=== PATIENT | male | born 1940 | race Caucasian/White ===

== ENCOUNTER 2016-08-17 12:55 | Inpatient (IN) | payer OTHER ==
[~2016-08-17] VITALS: Ht 180.3 cm; Wt 102.6 kg
[~2016-08-17 12:55] MED LIST: KETAMINE INJ 50 MG/ML VIAL IV ONE; PROPOFOL 50ML PER ML IV ONE
[2016-08-17] MEDS ORDERED: LIDOCAINE 1% 20ML NERVEBLOCK ONE (14:17)
[2016-08-17] MEDS ORDERED: BACITRACIN 50,000 UNITS INJ IRRIG ONE (14:17)
[2016-08-17] MEDS ORDERED: BUPIVACA/EPI 0.5% 50ML NERVEBLOCK ONE (14:17)
[2016-08-17] MEDS ORDERED: DILAUDID 1 MG/ML AMP ONE (18:05)
[2016-08-17] MEDS ORDERED: PHARMACY TO DOSE ZOSYN IV SCH (19:55)
[2016-08-17] MEDS ORDERED: GLUCAGON 1 MG VIAL IM PRN (19:55)
[2016-08-17] MEDS ORDERED: PHARMACY TO DOSE VANCOMYCIN IV SCH (19:55)
[2016-08-17] MEDS ORDERED: MAG HYDROX 30 ML UDC PO PRN (20:00)
[2016-08-17] MEDS ORDERED: BISACODYL 10 MG SUPP RECTAL PRN (20:00)
[2016-08-17] MEDS ORDERED: BISACODYL EC 5 MG TAB PO PRN (20:00)
[2016-08-17] MEDS ORDERED: VANCOMYCIN 2,000 MG in SODIUM CHLORIDE 0.9% 500 ML IV ONE (20:05)
[2016-08-17] MEDS: SALINE FLUSH 10 ML FLUSH SCH (22:07)
[2016-08-17] MEDS: DILAUDID 1 MG/ML AMP IV PRN (22:07)
[2016-08-17 22:21] VITALS: BP_SYST 106; RESP 18; TEMP 96
[2016-08-17 22:24] VITALS: Ht 180.3 cm; Wt 102.6 kg
[2016-08-17] MEDS: PIPERACIL/TAZO 2.25GM/50ML 50 ML IV SCH (23:29)
[2016-08-17] MEDS: ROPINIROLE 0.25 MG TAB PO SCH (23:33)
[2016-08-18] VITALS (7 sets, daily range): BP systolic 99–122; RESP 16–18; TEMP 96.6–98.8
[2016-08-18] MEDS: SODIUM CHLORIDE 0.9% FLUSH BAG 500 ML IV SCH (05:19)
[2016-08-18] MEDS: DILAUDID 1 MG/ML AMP IV PRN ×3 (05:20→18:42)
[2016-08-18] MEDS ORDERED: SODIUM CHLORIDE 0.9% 1,000 ML IV PRN (12:35)
[2016-08-18] MEDS ORDERED: SODIUM CHLORIDE 0.9% 1,000 ML IV SCH (12:35)
[2016-08-18] MEDS ORDERED: ONDANSETRON 4 MG VIAL IV PRN (12:35)
[2016-08-18] MEDS ORDERED: ALBUMIN HUMAN 25GM (25%) 100 ML IV PRN (12:35)
[2016-08-18] MEDS: SALINE FLUSH 10 ML FLUSH SCH ×2 (13:52→19:03)
[2016-08-18] MEDS: PIPERACIL/TAZO 2.25GM/50ML 50 ML IV SCH ×2 (15:37→19:40)
[2016-08-18] MEDS: Losartan 50 MG TAB PO SCH (17:43)
[2016-08-18] MEDS: ASPIRIN EC 81 MG TAB PO SCH (17:43)
[2016-08-18] MEDS: TAMSULOSIN 0.4 MG CAP PO SCH (17:43)
[2016-08-18] MEDS: ROSUVASTATIN 5 MG TAB PO SCH (17:43)
[2016-08-18] MEDS: EZETIMIBE 10 MG TAB PO SCH (17:44)
[2016-08-18] MEDS: ZINC TOPICAL PRN ×2 (19:01→20:45)
[2016-08-18] MEDS: DIPHENHYDR TOPICAL PRN ×2 (19:01→20:45)
[2016-08-18] MEDS: ROPINIROLE 0.25 MG TAB PO SCH (20:45)
[2016-08-19] MEDS: DILAUDID 1 MG/ML AMP IV PRN ×4 (00:57→20:29)
[2016-08-19 03:42] VITALS: BP_SYST 116; RESP 16; TEMP 98.6
[2016-08-19] MEDS: ACETAMINOPHEN 325 MG TAB PO PRN ×3 (04:31→18:18)
[2016-08-19] MEDS: SODIUM CHLORIDE 0.9% FLUSH BAG 500 ML IV SCH (05:16)
[2016-08-19 07:18] VITALS: BP_SYST 98; RESP 20; TEMP 97.7
[2016-08-19] MEDS: TAMSULOSIN 0.4 MG CAP PO SCH (09:17)
[2016-08-19] MEDS: ROSUVASTATIN 5 MG TAB PO SCH (09:17)
[2016-08-19] MEDS: PIPERACIL/TAZO 2.25GM/50ML 50 ML IV SCH ×2 (09:17→20:29)
[2016-08-19] MEDS: Losartan 50 MG TAB PO SCH (09:17)
[2016-08-19] MEDS: SALINE FLUSH 10 ML FLUSH SCH ×2 (09:17→20:29)
[2016-08-19] MEDS: ASPIRIN EC 81 MG TAB PO SCH (09:17)
[2016-08-19] MEDS: EZETIMIBE 10 MG TAB PO SCH (09:18)
[2016-08-19 10:52] VITALS: BP_SYST 102; RESP 18; TEMP 97.4
[2016-08-19] MEDS ORDERED: ALBUMIN HUMAN 25GM (25%) 100 ML IV PRN (13:00)
[2016-08-19] MEDS ORDERED: SODIUM CHLORIDE 0.9% 1,000 ML IV PRN (13:00)
[2016-08-19] MEDS ORDERED: SODIUM CHLORIDE 0.9% 1,000 ML IV SCH (13:00)
[2016-08-19 14:51] VITALS: BP_SYST 100; RESP 20; TEMP 98.5
[2016-08-19 19:00] VITALS: BP_SYST 105; RESP 18; TEMP 97.9
[2016-08-19] MEDS ORDERED: OPTIRAY 350 100 ML VIAL HMH IV ONE (19:54)
[2016-08-19] MEDS: ROPINIROLE 0.25 MG TAB PO SCH (20:28)
[2016-08-19] MEDS: SILVER SULF 1% CR 50 GM TOPICAL SCH (20:30)
[2016-08-19] MEDS: ZINC TOPICAL PRN (22:13)
[2016-08-19] MEDS: DIPHENHYDR TOPICAL PRN (22:13)
[2016-08-19 23:00] VITALS: BP_SYST 110; RESP 18; TEMP 97.8
[2016-08-20] VITALS (7 sets, daily range): BP systolic 81–133; RESP 16–18; TEMP 97.4–98.5
[2016-08-20] MEDS: DILAUDID 1 MG/ML AMP IV PRN ×5 (02:49→21:54)
[2016-08-20] MEDS: SODIUM CHLORIDE 0.9% FLUSH BAG 500 ML IV SCH (02:51)
[2016-08-20] MEDS: SALINE FLUSH 10 ML FLUSH SCH ×2 (07:53→20:08)
[2016-08-20] MEDS: PIPERACIL/TAZO 2.25GM/50ML 50 ML IV SCH ×2 (07:54→20:08)
[2016-08-20] MEDS: EZETIMIBE 10 MG TAB PO SCH (07:55)
[2016-08-20] MEDS: ROSUVASTATIN 5 MG TAB PO SCH (07:55)
[2016-08-20] MEDS: Losartan 50 MG TAB PO SCH (07:55)
[2016-08-20] MEDS: ASPIRIN EC 81 MG TAB PO SCH (07:55)
[2016-08-20] MEDS: TAMSULOSIN 0.4 MG CAP PO SCH (07:55)
[2016-08-20] MEDS: SILVER SULF 1% CR 50 GM TOPICAL SCH ×2 (07:56→22:33)
[2016-08-20] MEDS ORDERED: MISSING DOSE XX ONE ×3 (13:05→20:40)
[2016-08-20] MEDS: POLYETHYLENE GLYCOL 17 GM PACKET PO SCH (13:18)
[2016-08-20] MEDS: DOCUSATE SOD 100 MG CAP PO SCH ×2 (13:18→20:08)
[2016-08-20] MEDS: ACETAMINOPHEN 325 MG TAB PO PRN (15:50)
[2016-08-20] MEDS ORDERED: VANCOMYCIN 500 MG in SODIUM CHLORIDE 0.9% 100 ML IV ONE (16:00)
[2016-08-20] MEDS: ROPINIROLE 0.25 MG TAB PO SCH (20:08)
[2016-08-20] MEDS: CYCLOBENZAPRINE 10 MG TAB PO PRN (21:54)
[2016-08-21 02:33] VITALS: BP_SYST 102; RESP 18; TEMP 97.7
[2016-08-21] MEDS: DILAUDID 1 MG/ML AMP IV PRN ×3 (02:49→13:43)
[2016-08-21] MEDS: ACETAMINOPHEN 325 MG TAB PO PRN (05:44)
[2016-08-21] MEDS: SODIUM CHLORIDE 0.9% FLUSH BAG 500 ML IV SCH (05:45)
[2016-08-21] MEDS ORDERED: MISSING DOSE XX ONE (06:30)
[2016-08-21 08:14] VITALS: BP_SYST 101; RESP 18; TEMP 97.7
[2016-08-21] MEDS: ROSUVASTATIN 5 MG TAB PO SCH (09:16)
[2016-08-21] MEDS: POLYETHYLENE GLYCOL 17 GM PACKET PO SCH (09:16)
[2016-08-21] MEDS: EZETIMIBE 10 MG TAB PO SCH (09:16)
[2016-08-21] MEDS: DOCUSATE SOD 100 MG CAP PO SCH ×2 (09:16→20:03)
[2016-08-21] MEDS: ASPIRIN EC 81 MG TAB PO SCH (09:16)
[2016-08-21] MEDS: TAMSULOSIN 0.4 MG CAP PO SCH (09:16)
[2016-08-21] MEDS: PIPERACIL/TAZO 2.25GM/50ML 50 ML IV SCH ×2 (09:16→20:03)
[2016-08-21] MEDS: SALINE FLUSH 10 ML FLUSH SCH ×2 (09:17→20:03)
[2016-08-21 11:41] VITALS: BP_SYST 80; RESP 18; TEMP 97.2
[2016-08-21] MEDS: ZINC TOPICAL PRN ×2 (13:26→21:43)
[2016-08-21] MEDS: DIPHENHYDR TOPICAL PRN ×2 (13:26→21:43)
[2016-08-21 16:15] VITALS: BP_SYST 102; RESP 16; TEMP 98.2
[2016-08-21] MEDS: SILVER SULF 1% CR 50 GM TOPICAL SCH ×2 (17:46→21:00)
[2016-08-21 19:00] VITALS: BP_SYST 112; RESP 18; TEMP 97.5
[2016-08-21] MEDS: ROPINIROLE 0.25 MG TAB PO SCH (20:04)
[2016-08-21 22:41] VITALS: BP_SYST 104; RESP 18; TEMP 97.2
[2016-08-22] MEDS: DILAUDID 1 MG/ML AMP IV PRN ×5 (00:51→18:45)
[2016-08-22 02:39] VITALS: BP_SYST 114; RESP 18; TEMP 97.6
[2016-08-22] MEDS: SODIUM CHLORIDE 0.9% FLUSH BAG 500 ML IV SCH (05:25)
[2016-08-22 07:30] VITALS: BP_SYST 117; RESP 16; TEMP 97.4
[2016-08-22] MEDS: PIPERACIL/TAZO 2.25GM/50ML 50 ML IV SCH ×2 (08:00→21:22)
[2016-08-22] MEDS ORDERED: MISSING DOSE XX ONE ×4 (08:15→21:35)
[2016-08-22] MEDS: DOCUSATE SOD 100 MG CAP PO SCH ×2 (08:23→21:22)
[2016-08-22] MEDS: ROSUVASTATIN 5 MG TAB PO SCH (08:23)
[2016-08-22] MEDS: TAMSULOSIN 0.4 MG CAP PO SCH (08:23)
[2016-08-22] MEDS: ASPIRIN EC 81 MG TAB PO SCH (08:23)
[2016-08-22] MEDS: SALINE FLUSH 10 ML FLUSH SCH ×2 (08:23→21:22)
[2016-08-22] MEDS: EZETIMIBE 10 MG TAB PO SCH (08:23)
[2016-08-22] MEDS: POLYETHYLENE GLYCOL 17 GM PACKET PO SCH (08:24)
[2016-08-22] MEDS: SILVER SULF 1% CR 50 GM TOPICAL SCH (09:23)
[2016-08-22] MEDS: DIPHENHYDR TOPICAL PRN (09:24)
[2016-08-22] MEDS: ZINC TOPICAL PRN (09:24)
[2016-08-22] MEDS ORDERED: ALBUMIN HUMAN 25GM (25%) 100 ML IV PRN (09:45)
[2016-08-22] MEDS ORDERED: SODIUM CHLORIDE 0.9% 1,000 ML IV PRN (09:45)
[2016-08-22] MEDS ORDERED: SODIUM CHLORIDE 0.9% 1,000 ML IV SCH (09:45)
[2016-08-22] MEDS ORDERED: ONDANSETRON 4 MG VIAL IV PRN (09:45)
[2016-08-22] MEDS: CALCIUM ACETATE 667MG CAP PO SCH ×3 (10:08→17:32)
[2016-08-22 11:37] VITALS: BP_SYST 107; RESP 18; TEMP 98
[2016-08-22] MEDS: DIPHENHYDRAMINE 25 MG CAP PO PRN (13:41)
[2016-08-22 16:17] VITALS: BP_SYST 109; RESP 18; TEMP 97.6
[2016-08-22] MEDS: CILOSTAZOL 100 MG TAB PO SCH (17:00)
[2016-08-22 19:00] VITALS: BP_SYST 121; RESP 18; TEMP 97.6
[2016-08-22] MEDS: ROPINIROLE 0.25 MG TAB PO SCH (21:22)
[2016-08-22 23:00] VITALS: BP_SYST 107; RESP 18; TEMP 97.3
[2016-08-23] MEDS: DILAUDID 1 MG/ML AMP IV PRN ×4 (00:20→15:38)
[2016-08-23] MEDS: CYCLOBENZAPRINE 10 MG TAB PO PRN ×2 (01:40→21:39)
[2016-08-23] MEDS: SILVER SULF 1% CR 50 GM TOPICAL SCH ×3 (01:48→21:40)
[2016-08-23 04:29] VITALS: BP_SYST 119; RESP 18; TEMP 97.3
[2016-08-23] MEDS: CILOSTAZOL 100 MG TAB PO SCH ×2 (06:31→15:37)
[2016-08-23] MEDS: SODIUM CHLORIDE 0.9% FLUSH BAG 500 ML IV SCH (06:31)
[2016-08-23] MEDS: DIPHENHYDRAMINE 25 MG CAP PO PRN ×3 (08:26→21:38)
[2016-08-23] MEDS: SALINE FLUSH 10 ML FLUSH SCH ×2 (08:26→20:27)
[2016-08-23] MEDS: CALCIUM ACETATE 667MG CAP PO SCH ×3 (08:27→16:33)
[2016-08-23] MEDS: DOCUSATE SOD 100 MG CAP PO SCH ×2 (08:27→20:15)
[2016-08-23] MEDS: TAMSULOSIN 0.4 MG CAP PO SCH (08:27)
[2016-08-23] MEDS: POLYETHYLENE GLYCOL 17 GM PACKET PO SCH (08:27)
[2016-08-23] MEDS: ASPIRIN EC 81 MG TAB PO SCH (08:27)
[2016-08-23 08:47] VITALS: BP_SYST 112; RESP 20
[2016-08-23] MEDS: SALINE FLUSH 10 ML FLUSH PRN ×2 (08:48→15:40)
[2016-08-23] MEDS ORDERED: PHARMACY TO DOSE XX SCH (11:20)
[2016-08-23] MEDS: PIPERACIL/TAZO 2.25GM/50ML 50 ML IV SCH (11:29)
[2016-08-23] MEDS: ROSUVASTATIN 5 MG TAB PO SCH ×2 (11:29→20:15)
[2016-08-23] MEDS ORDERED: LEVOFLOXACIN 750 MG TAB PO ONE (12:00)
[2016-08-23 13:46] VITALS: BP_SYST 129; RESP 18; TEMP 97.6
[2016-08-23 13:49] VITALS: BP_SYST 121; RESP 16; TEMP 98.2
[2016-08-23] MEDS: SACCHA BOULARDII 250MG CAP PO SCH ×3 (14:10→20:15)
[2016-08-23] MEDS: EZETIMIBE 10 MG TAB PO SCH (14:11)
[2016-08-23] MEDS ORDERED: MISSING DOSE XX ONE ×3 (15:30→20:20)
[2016-08-23 17:29] VITALS: BP_SYST 116; RESP 20; TEMP 97.3
[2016-08-23] MEDS: ONDANSETRON 4 MG VIAL IV PRN (17:40)
[2016-08-23] MEDS: ROPINIROLE 0.25 MG TAB PO SCH (20:14)
[2016-08-23 20:49] VITALS: BP_SYST 104; RESP 18; TEMP 97.5
[2016-08-23] MEDS: DEXTROSE 50% SYRINGE 50 ML IV PRN (22:43)
[2016-08-24] VITALS (11 sets, daily range): BP systolic 83–113; RESP 18–20; TEMP 97.5–98.4
[2016-08-24] MEDS: DILAUDID 1 MG/ML AMP IV PRN ×4 (02:27→16:50)
[2016-08-24] MEDS: ACETAMINOPHEN 325 MG TAB PO PRN ×2 (05:06→11:57)
[2016-08-24] MEDS: SODIUM CHLORIDE 0.9% FLUSH BAG 500 ML IV SCH (05:07)
[2016-08-24] MEDS: CILOSTAZOL 100 MG TAB PO SCH ×2 (06:09→16:54)
[2016-08-24] MEDS: POLYETHYLENE GLYCOL 17 GM PACKET PO SCH (08:20)
[2016-08-24] MEDS: CALCIUM ACETATE 667MG CAP PO SCH ×3 (08:20→16:54)
[2016-08-24] MEDS: SACCHA BOULARDII 250MG CAP PO SCH ×3 (08:20→20:27)
[2016-08-24] MEDS: ASPIRIN EC 81 MG TAB PO SCH (08:20)
[2016-08-24] MEDS: SALINE FLUSH 10 ML FLUSH SCH ×2 (08:20→20:27)
[2016-08-24] MEDS: DOCUSATE SOD 100 MG CAP PO SCH ×2 (08:20→20:27)
[2016-08-24] MEDS: EZETIMIBE 10 MG TAB PO SCH (08:20)
[2016-08-24] MEDS: TAMSULOSIN 0.4 MG CAP PO SCH (08:21)
[2016-08-24] MEDS: SILVER SULF 1% CR 50 GM TOPICAL SCH ×2 (08:23→20:27)
[2016-08-24] MEDS ORDERED: LIDOCAINE 1% BUFFERED 1 ML SYR INTRADERM PRN (09:35)
[2016-08-24] MEDS ORDERED: SODIUM CHLORIDE 0.9% 1,000 ML IV SCH (09:35)
[2016-08-24] MEDS ORDERED: MIDAZOLAM 2 MG/2 ML INJ IV ONE (09:35)
[2016-08-24] MEDS: ONDANSETRON 4 MG VIAL IV PRN (18:11)
[2016-08-24] MEDS: ROSUVASTATIN 5 MG TAB PO SCH (20:27)
[2016-08-24] MEDS: ROPINIROLE 0.25 MG TAB PO SCH (20:27)
[2016-08-24] MEDS ORDERED: ZOLPIDEM 5 MG TAB PO SCH (21:00)
[2016-08-25] VITALS (20 sets, daily range): BP systolic 101–124; RESP 16–26; TEMP 97.5–98.9
[2016-08-25] MEDS: DIPHENHYDRAMINE 25 MG CAP PO PRN ×3 (00:41→19:59)
[2016-08-25] MEDS: DILAUDID 1 MG/ML AMP IV PRN ×5 (00:42→20:27)
[2016-08-25] MEDS: ZINC TOPICAL PRN (00:47)
[2016-08-25] MEDS: ONDANSETRON 4 MG VIAL IV PRN (00:47)
[2016-08-25] MEDS: DIPHENHYDR TOPICAL PRN (00:47)
[2016-08-25] MEDS: SODIUM CHLORIDE 0.9% FLUSH BAG 500 ML IV SCH (06:00)
[2016-08-25] MEDS: CILOSTAZOL 100 MG TAB PO SCH ×2 (06:52→16:00)
[2016-08-25] MEDS: CALCIUM ACETATE 667MG CAP PO SCH ×3 (07:16→17:00)
[2016-08-25] MEDS: ASPIRIN EC 81 MG TAB PO SCH (08:14)
[2016-08-25] MEDS: POLYETHYLENE GLYCOL 17 GM PACKET PO SCH (08:14)
[2016-08-25] MEDS: TAMSULOSIN 0.4 MG CAP PO SCH (08:14)
[2016-08-25] MEDS: SACCHA BOULARDII 250MG CAP PO SCH ×3 (08:18→19:59)
[2016-08-25] MEDS: EZETIMIBE 10 MG TAB PO SCH (08:18)
[2016-08-25] MEDS: LEVOFLOXACIN 500 MG TAB PO SCH (08:19)
[2016-08-25] MEDS: SALINE FLUSH 10 ML FLUSH SCH ×2 (08:21→19:54)
[2016-08-25] MEDS: DOCUSATE SOD 100 MG CAP PO SCH ×2 (08:22→19:59)
[2016-08-25] MEDS: SILVER SULF 1% CR 50 GM TOPICAL SCH ×2 (08:22→21:00)
[2016-08-25] MEDS ORDERED: MISSING DOSE XX ONE (09:20)
[2016-08-25] MEDS ORDERED: MIDAZOLAM 2 MG/2 ML INJ ONE (09:25)
[2016-08-25] MEDS ORDERED: OXYCODONE 5 MG TAB PO PRN (10:20)
[2016-08-25] MEDS ORDERED: DILAUDID 1 MG/ML AMP IV PRN (10:20)
[2016-08-25] MEDS ORDERED: ONDANSETRON 4 MG VIAL IV PRN (10:20)
[2016-08-25] MEDS: ROSUVASTATIN 5 MG TAB PO SCH (19:59)
[2016-08-25] MEDS: ROPINIROLE 0.25 MG TAB PO SCH (19:59)
[2016-08-25] MEDS: TEMAZEPAM 15 MG CAP PO SCH (19:59)
[2016-08-25] MEDS: CYCLOBENZAPRINE 10 MG TAB PO PRN (23:41)
[2016-08-25] MEDS: ACETAMINOPHEN 325 MG TAB PO PRN (23:43)
[2016-08-26] MEDS: DILAUDID 1 MG/ML AMP IV PRN ×3 (02:00→14:54)
[2016-08-26] MEDS: SODIUM CHLORIDE 0.9% FLUSH BAG 500 ML IV SCH ×2 (02:53→21:38)
[2016-08-26 03:59] VITALS: BP_SYST 90; RESP 18; TEMP 97.8
[2016-08-26] MEDS: CILOSTAZOL 100 MG TAB PO SCH ×2 (05:44→17:02)
[2016-08-26 07:11] VITALS: BP_SYST 99; RESP 18; TEMP 98.8
[2016-08-26] MEDS: SACCHA BOULARDII 250MG CAP PO SCH ×3 (07:50→21:38)
[2016-08-26] MEDS: CALCIUM ACETATE 667MG CAP PO SCH ×3 (07:50→17:02)
[2016-08-26] MEDS: DOCUSATE SOD 100 MG CAP PO SCH ×2 (07:51→21:38)
[2016-08-26] MEDS: ASPIRIN EC 81 MG TAB PO SCH (07:51)
[2016-08-26] MEDS: EZETIMIBE 10 MG TAB PO SCH (07:51)
[2016-08-26] MEDS: TAMSULOSIN 0.4 MG CAP PO SCH (07:51)
[2016-08-26] MEDS: POLYETHYLENE GLYCOL 17 GM PACKET PO SCH (07:52)
[2016-08-26] MEDS: SALINE FLUSH 10 ML FLUSH SCH ×2 (08:00→21:37)
[2016-08-26] MEDS: SILVER SULF 1% CR 50 GM TOPICAL SCH ×2 (09:00→21:00)
[2016-08-26] MEDS ORDERED: MISSING DOSE XX ONE (10:05)
[2016-08-26 10:58] VITALS: BP_SYST 109; RESP 18; TEMP 98.1
[2016-08-26 15:26] VITALS: BP_SYST 78; RESP 18; TEMP 98.6
[2016-08-26] MEDS ORDERED: ALBUMIN HUMAN 25GM (25%) 100 ML IV ONE (15:50)
[2016-08-26] MEDS ORDERED: SODIUM CHLORIDE 0.9% 500 ML IV ONE (15:50)
[2016-08-26 19:51] VITALS: BP_SYST 102; RESP 18; TEMP 97.9
[2016-08-26] MEDS: ROPINIROLE 0.25 MG TAB PO SCH (21:37)
[2016-08-26] MEDS: ROSUVASTATIN 5 MG TAB PO SCH (21:37)
[2016-08-26] MEDS: TEMAZEPAM 15 MG CAP PO SCH (21:37)
[2016-08-27] VITALS (9 sets, daily range): BP systolic 91–126; RESP 16–20; TEMP 97.7–98.8
[2016-08-27] MEDS: DILAUDID 1 MG/ML AMP IV PRN (02:18)
[2016-08-27] MEDS: CILOSTAZOL 100 MG TAB PO SCH ×2 (05:55→15:16)
[2016-08-27] MEDS: LEVOFLOXACIN 500 MG TAB PO SCH (08:02)
[2016-08-27] MEDS: ASPIRIN EC 81 MG TAB PO SCH (08:02)
[2016-08-27] MEDS: SACCHA BOULARDII 250MG CAP PO SCH ×3 (08:02→21:05)
[2016-08-27] MEDS: TAMSULOSIN 0.4 MG CAP PO SCH (08:02)
[2016-08-27] MEDS: CALCIUM ACETATE 667MG CAP PO SCH ×3 (08:02→17:00)
[2016-08-27] MEDS: DOCUSATE SOD 100 MG CAP PO SCH ×2 (08:02→21:05)
[2016-08-27] MEDS: DAKIN'S 0.25% 480 ML TOPICAL SCH (08:03)
[2016-08-27] MEDS: EZETIMIBE 10 MG TAB PO SCH (08:03)
[2016-08-27] MEDS: POLYETHYLENE GLYCOL 17 GM PACKET PO SCH (08:04)
[2016-08-27] MEDS: SALINE FLUSH 10 ML FLUSH SCH ×2 (08:07→21:14)
[2016-08-27] MEDS ORDERED: OXYCODONE/APAP 5/325 TAB PO PRN (08:20)
[2016-08-27] MEDS: OXYCODONE 5 MG TAB PO PRN ×4 (08:47→22:39)
[2016-08-27] MEDS: ACETAMINOPHEN 325 MG TAB PO SCH ×3 (10:20→21:04)
[2016-08-27] MEDS: GABAPENTIN 100 MG CAP PO SCH ×3 (12:40→21:05)
[2016-08-27] MEDS: ONDANSETRON 4 MG VIAL IV PRN (15:48)
[2016-08-27] MEDS ORDERED: PHARMACY TO DOSE MERREM XX SCH (19:10)
[2016-08-27] MEDS: Meropenem 500 MG in SODIUM CHLORIDE 0.9% 100 ML IV SCH (21:01)
[2016-08-27] MEDS: TEMAZEPAM 15 MG CAP PO SCH (21:02)
[2016-08-27] MEDS: ROSUVASTATIN 5 MG TAB PO SCH (21:05)
[2016-08-27] MEDS: ROPINIROLE 0.25 MG TAB PO SCH (21:05)
[2016-08-27] MEDS: SODIUM CHLORIDE 0.9% FLUSH BAG 500 ML IV SCH (21:14)
[2016-08-28] VITALS (8 sets, daily range): BP systolic 68–147; RESP 16–20; TEMP 97.4–98.7
[2016-08-28] MEDS: ACETAMINOPHEN 325 MG TAB PO SCH ×4 (04:20→22:14)
[2016-08-28] MEDS: CILOSTAZOL 100 MG TAB PO SCH ×2 (06:00→16:28)
[2016-08-28] MEDS: DAKIN'S 0.25% 480 ML TOPICAL SCH (08:39)
[2016-08-28] MEDS: SALINE FLUSH 10 ML FLUSH SCH ×2 (08:39→20:54)
[2016-08-28] MEDS: POLYETHYLENE GLYCOL 17 GM PACKET PO SCH (08:39)
[2016-08-28] MEDS: EZETIMIBE 10 MG TAB PO SCH (08:40)
[2016-08-28] MEDS: DOCUSATE SOD 100 MG CAP PO SCH ×2 (08:40→20:55)
[2016-08-28] MEDS: CALCIUM ACETATE 667MG CAP PO SCH ×3 (08:40→18:07)
[2016-08-28] MEDS: ASPIRIN EC 81 MG TAB PO SCH (08:40)
[2016-08-28] MEDS: SACCHA BOULARDII 250MG CAP PO SCH ×3 (08:40→20:56)
[2016-08-28] MEDS: TAMSULOSIN 0.4 MG CAP PO SCH (08:40)
[2016-08-28] MEDS: GABAPENTIN 100 MG CAP PO SCH ×3 (08:40→20:56)
[2016-08-28] MEDS: OXYCODONE 5 MG TAB PO PRN (14:43)
[2016-08-28] MEDS: ZINC TOPICAL PRN (16:49)
[2016-08-28] MEDS: DIPHENHYDR TOPICAL PRN (16:49)
[2016-08-28] MEDS: Meropenem 500 MG in SODIUM CHLORIDE 0.9% 100 ML IV SCH (20:53)
[2016-08-28] MEDS: ROPINIROLE 0.25 MG TAB PO SCH (20:56)
[2016-08-28] MEDS: ROSUVASTATIN 5 MG TAB PO SCH (20:56)
[2016-08-28] MEDS: TEMAZEPAM 15 MG CAP PO SCH (21:00)
[2016-08-29 03:14] VITALS: BP_SYST 107; RESP 16; TEMP 98.4
[2016-08-29] MEDS: ACETAMINOPHEN 325 MG TAB PO SCH ×4 (04:20→22:34)
[2016-08-29] MEDS: CILOSTAZOL 100 MG TAB PO SCH ×2 (06:16→15:08)
[2016-08-29] MEDS: SODIUM CHLORIDE 0.9% FLUSH BAG 500 ML IV SCH (06:16)
[2016-08-29 07:45] VITALS: BP_SYST 122; RESP 16; TEMP 98
[2016-08-29] MEDS: POLYETHYLENE GLYCOL 17 GM PACKET PO SCH (08:30)
[2016-08-29] MEDS: TAMSULOSIN 0.4 MG CAP PO SCH (08:31)
[2016-08-29] MEDS: DOCUSATE SOD 100 MG CAP PO SCH ×2 (08:31→20:15)
[2016-08-29] MEDS: CALCIUM ACETATE 667MG CAP PO SCH ×3 (08:31→17:15)
[2016-08-29] MEDS: EZETIMIBE 10 MG TAB PO SCH (08:31)
[2016-08-29] MEDS: OXYCODONE 5 MG TAB PO PRN ×3 (08:31→17:47)
[2016-08-29] MEDS: GABAPENTIN 100 MG CAP PO SCH ×3 (08:31→20:15)
[2016-08-29] MEDS: SACCHA BOULARDII 250MG CAP PO SCH ×3 (08:31→20:15)
[2016-08-29] MEDS: LEVOFLOXACIN 500 MG TAB PO SCH (08:32)
[2016-08-29] MEDS: SALINE FLUSH 10 ML FLUSH SCH ×2 (08:32→21:34)
[2016-08-29] MEDS: DAKIN'S 0.25% 480 ML TOPICAL SCH (08:32)
[2016-08-29] MEDS: ASPIRIN EC 81 MG TAB PO SCH (08:32)
[2016-08-29 11:19] VITALS: BP_SYST 93; RESP 18; TEMP 98.5
[2016-08-29] MEDS ORDERED: MISSING DOSE XX ONE (12:45)
[2016-08-29 15:18] VITALS: BP_SYST 99; RESP 18; TEMP 97.7
[2016-08-29] MEDS ORDERED: EPOETIN 4,000 UNIT VIAL IV SCH (16:15)
[2016-08-29] MEDS ORDERED: hePARIN 1,000 UNITS/ML (PORCINE) 10 ML IV PRN (16:15)
[2016-08-29] MEDS: ROSUVASTATIN 5 MG TAB PO SCH (20:15)
[2016-08-29] MEDS: TEMAZEPAM 15 MG CAP PO SCH (20:15)
[2016-08-29] MEDS: ROPINIROLE 0.25 MG TAB PO SCH (20:15)
[2016-08-29 20:22] VITALS: BP_SYST 87; RESP 18; TEMP 98.4
[2016-08-29] MEDS: Meropenem 500 MG in SODIUM CHLORIDE 0.9% 100 ML IV SCH (20:28)
[2016-08-29] MEDS: DEXTROSE 50% SYRINGE 50 ML IV PRN (23:05)
[2016-08-29 23:58] VITALS: BP_SYST 111; RESP 20; TEMP 97.4
[2016-08-30] VITALS (9 sets, daily range): BP systolic 87–188; RESP 16–22; TEMP 97.6–98.6
[2016-08-30] MEDS: ACETAMINOPHEN 325 MG TAB PO SCH ×4 (04:20→22:20)
[2016-08-30] MEDS: SODIUM CHLORIDE 0.9% FLUSH BAG 500 ML IV SCH (04:58)
[2016-08-30] MEDS: CILOSTAZOL 100 MG TAB PO SCH ×2 (06:01→17:08)
[2016-08-30] MEDS: CALCIUM ACETATE 667MG CAP PO SCH ×3 (08:31→17:36)
[2016-08-30] MEDS: ASPIRIN EC 81 MG TAB PO SCH (08:31)
[2016-08-30] MEDS: DOCUSATE SOD 100 MG CAP PO SCH ×2 (08:32→20:27)
[2016-08-30] MEDS: SACCHA BOULARDII 250MG CAP PO SCH ×3 (08:32→20:27)
[2016-08-30] MEDS: POLYETHYLENE GLYCOL 17 GM PACKET PO SCH (08:32)
[2016-08-30] MEDS: EZETIMIBE 10 MG TAB PO SCH (08:33)
[2016-08-30] MEDS: SALINE FLUSH 10 ML FLUSH SCH ×2 (08:42→20:27)
[2016-08-30] MEDS: TAMSULOSIN 0.4 MG CAP PO SCH (08:42)
[2016-08-30] MEDS: GABAPENTIN 100 MG CAP PO SCH ×2 (08:42→16:00)
[2016-08-30] MEDS ORDERED: MISSING DOSE XX ONE ×2 (10:15→19:50)
[2016-08-30] MEDS: MIDODRINE 10 MG TAB PO SCH (17:45)
[2016-08-30] MEDS: ROPINIROLE 0.25 MG TAB PO SCH (20:27)
[2016-08-30] MEDS: ROSUVASTATIN 5 MG TAB PO SCH (20:27)
[2016-08-30] MEDS: Meropenem 500 MG in SODIUM CHLORIDE 0.9% 100 ML IV SCH (20:33)
[2016-08-30] MEDS: TEMAZEPAM 15 MG CAP PO SCH (20:42)
[2016-08-31] VITALS (83 sets, daily range): BP systolic 64–139; RESP 11–29; TEMP 96.7–98.6
[2016-08-31] MEDS: DILAUDID 1 MG/ML AMP IV PRN ×2 (01:24→10:59)
[2016-08-31] MEDS: ACETAMINOPHEN 325 MG TAB PO SCH ×4 (03:53→21:13)
[2016-08-31] MEDS: SODIUM CHLORIDE 0.9% FLUSH BAG 500 ML IV SCH ×2 (05:31→20:10)
[2016-08-31] MEDS: AMIODARONE 450 MG in DEXTROSE 5% AVIVA 250 ML IV SCH ×2 (05:32→14:29)
[2016-08-31] MEDS: MIDODRINE 10 MG TAB PO SCH ×3 (06:06→16:25)
[2016-08-31] MEDS: CILOSTAZOL 100 MG TAB PO SCH ×2 (06:06→16:25)
[2016-08-31] MEDS: CALCIUM ACETATE 667MG CAP PO SCH ×3 (08:00→17:52)
[2016-08-31] MEDS: ONDANSETRON 4 MG VIAL IV PRN (08:52)
[2016-08-31] MEDS: SALINE FLUSH 10 ML FLUSH SCH ×2 (08:53→20:07)
[2016-08-31] MEDS ORDERED: AMIODARONE 150 MG in DEXTROSE 5% 100 ML IV ONE (11:05)
[2016-08-31] MEDS: DOCUSATE SOD 100 MG CAP PO SCH ×2 (11:17→21:11)
[2016-08-31] MEDS: POLYETHYLENE GLYCOL 17 GM PACKET PO SCH ×2 (11:17→11:26)
[2016-08-31] MEDS: SACCHA BOULARDII 250MG CAP PO SCH ×3 (11:17→21:12)
[2016-08-31] MEDS: EZETIMIBE 10 MG TAB PO SCH (11:17)
[2016-08-31] MEDS: ASPIRIN EC 81 MG TAB PO SCH (11:17)
[2016-08-31] MEDS: TAMSULOSIN 0.4 MG CAP PO SCH ×2 (11:17→11:22)
[2016-08-31] MEDS ORDERED: MISSING DOSE XX ONE ×3 (11:30→22:55)
[2016-08-31] MEDS: BISACODYL EC 5 MG TAB PO PRN (13:48)
[2016-08-31] MEDS ORDERED: MIDODRINE 2.5 MG TAB PO SCH (18:45)
[2016-08-31] MEDS: Meropenem 500 MG in SODIUM CHLORIDE 0.9% 100 ML IV SCH (20:07)
[2016-08-31] MEDS: ROSUVASTATIN 5 MG TAB PO SCH (21:11)
[2016-08-31] MEDS: ROPINIROLE 0.25 MG TAB PO SCH (21:12)
[2016-08-31] MEDS: TEMAZEPAM 15 MG CAP PO SCH (21:12)
[2016-09-01] VITALS (64 sets, daily range): BP systolic 50–152; RESP 9–40; TEMP 97.4–99.1
[2016-09-01] MEDS: ONDANSETRON 4 MG VIAL IV PRN (03:20)
[2016-09-01] MEDS: DILAUDID 1 MG/ML AMP IV PRN (03:20)
[2016-09-01] MEDS: BISACODYL EC 5 MG TAB PO PRN (03:25)
[2016-09-01] MEDS: ACETAMINOPHEN 325 MG TAB PO SCH ×4 (04:20→22:03)
[2016-09-01] MEDS: MIDODRINE 10 MG TAB PO SCH ×3 (06:22→16:54)
[2016-09-01] MEDS: CILOSTAZOL 100 MG TAB PO SCH ×2 (06:22→16:54)
[2016-09-01] MEDS: SALINE FLUSH 10 ML FLUSH SCH ×2 (08:33→19:57)
[2016-09-01] MEDS: EZETIMIBE 10 MG TAB PO SCH (08:34)
[2016-09-01] MEDS: ASPIRIN EC 81 MG TAB PO SCH (08:34)
[2016-09-01] MEDS: DOCUSATE SOD 100 MG CAP PO SCH ×2 (08:34→20:38)
[2016-09-01] MEDS: POLYETHYLENE GLYCOL 17 GM PACKET PO SCH (08:35)
[2016-09-01] MEDS: SACCHA BOULARDII 250MG CAP PO SCH ×3 (08:35→20:38)
[2016-09-01] MEDS: CALCIUM ACETATE 667MG CAP PO SCH ×3 (08:35→16:54)
[2016-09-01] MEDS: TAMSULOSIN 0.4 MG CAP PO SCH (08:35)
[2016-09-01] MEDS: AMIODARONE 200 MG TAB PO SCH ×2 (11:14→20:38)
[2016-09-01] MEDS ORDERED: OPTIRAY 350 100 ML VIAL HMH IV ONE (18:33)
[2016-09-01] MEDS: ROSUVASTATIN 5 MG TAB PO SCH (20:38)
[2016-09-01] MEDS: Meropenem 500 MG in SODIUM CHLORIDE 0.9% 100 ML IV SCH (20:38)
[2016-09-01] MEDS: ROPINIROLE 0.25 MG TAB PO SCH (20:38)
[2016-09-01] MEDS: TEMAZEPAM 15 MG CAP PO SCH (22:02)
[2016-09-01] MEDS: OXYCODONE 5 MG TAB PO PRN (22:03)
[2016-09-02] VITALS (20 sets, daily range): BP systolic 94–148; RESP 6–21; TEMP 97.4–99.4
[2016-09-02] MEDS: OXYCODONE 5 MG TAB PO PRN (04:08)
[2016-09-02] MEDS: ACETAMINOPHEN 325 MG TAB PO SCH ×4 (04:08→21:29)
[2016-09-02] MEDS: SODIUM CHLORIDE 0.9% FLUSH BAG 500 ML IV SCH (06:22)
[2016-09-02] MEDS: CILOSTAZOL 100 MG TAB PO SCH ×2 (06:22→17:14)
[2016-09-02] MEDS: MIDODRINE 10 MG TAB PO SCH ×3 (06:22→17:13)
[2016-09-02] MEDS: EZETIMIBE 10 MG TAB PO SCH (07:51)
[2016-09-02] MEDS: SACCHA BOULARDII 250MG CAP PO SCH ×3 (07:51→20:23)
[2016-09-02] MEDS: AMIODARONE 200 MG TAB PO SCH ×2 (07:51→20:23)
[2016-09-02] MEDS: POLYETHYLENE GLYCOL 17 GM PACKET PO SCH (07:52)
[2016-09-02] MEDS: TAMSULOSIN 0.4 MG CAP PO SCH (07:52)
[2016-09-02] MEDS: DOCUSATE SOD 100 MG CAP PO SCH ×2 (07:52→20:24)
[2016-09-02] MEDS: SALINE FLUSH 10 ML FLUSH SCH ×2 (07:53→20:25)
[2016-09-02] MEDS: ASPIRIN EC 81 MG TAB PO SCH (07:55)
[2016-09-02] MEDS: CALCIUM ACETATE 667MG CAP PO SCH ×3 (07:55→17:13)
[2016-09-02] MEDS: ONDANSETRON 4 MG VIAL IV PRN (09:33)
[2016-09-02] MEDS ORDERED: ALBUMIN HUMAN 25GM (25%) 100 ML IV PRN (15:30)
[2016-09-02] MEDS ORDERED: ONDANSETRON 4 MG VIAL IV PRN (15:30)
[2016-09-02] MEDS ORDERED: SODIUM CHLORIDE 0.9% 1,000 ML IV SCH (15:30)
[2016-09-02] MEDS ORDERED: SODIUM CHLORIDE 0.9% 1,000 ML IV PRN (15:30)
[2016-09-02] MEDS: DILAUDID 1 MG/ML AMP IV PRN ×2 (16:14→20:26)
[2016-09-02] MEDS ORDERED: METOCLOPRAMIDE 10 MG/2 ML VIAL IV PUSH PRN (17:35)
[2016-09-02] MEDS ORDERED: MISSING DOSE XX ONE (19:40)
[2016-09-02] MEDS: TEMAZEPAM 15 MG CAP PO SCH (20:23)
[2016-09-02] MEDS: ROSUVASTATIN 5 MG TAB PO SCH (20:24)
[2016-09-02] MEDS: ROPINIROLE 0.25 MG TAB PO SCH (20:25)
[2016-09-02] MEDS: Meropenem 500 MG in SODIUM CHLORIDE 0.9% 100 ML IV SCH (20:26)
[2016-09-03] VITALS (9 sets, daily range): BP systolic 82–140; RESP 16–20; TEMP 97.4–98.6
[2016-09-03] MEDS: ACETAMINOPHEN 325 MG TAB PO SCH ×4 (04:20→23:46)
[2016-09-03] MEDS: SODIUM CHLORIDE 0.9% FLUSH BAG 500 ML IV SCH ×2 (06:00→06:05)
[2016-09-03] MEDS: MIDODRINE 10 MG TAB PO SCH ×3 (06:06→16:00)
[2016-09-03] MEDS: CILOSTAZOL 100 MG TAB PO SCH ×2 (06:06→17:15)
[2016-09-03] MEDS: SALINE FLUSH 10 ML FLUSH SCH ×2 (08:00→21:11)
[2016-09-03] MEDS: CALCIUM ACETATE 667MG CAP PO SCH ×3 (08:00→17:15)
[2016-09-03] MEDS: POLYETHYLENE GLYCOL 17 GM PACKET PO SCH (09:00)
[2016-09-03] MEDS: SACCHA BOULARDII 250MG CAP PO SCH ×3 (09:00→21:47)
[2016-09-03] MEDS: EZETIMIBE 10 MG TAB PO SCH (09:00)
[2016-09-03] MEDS: ASPIRIN EC 81 MG TAB PO SCH (09:00)
[2016-09-03] MEDS: DOCUSATE SOD 100 MG CAP PO SCH ×2 (09:00→21:46)
[2016-09-03] MEDS: AMIODARONE 200 MG TAB PO SCH ×2 (09:00→21:47)
[2016-09-03] MEDS: TAMSULOSIN 0.4 MG CAP PO SCH (09:00)
[2016-09-03] MEDS: METOCLOPRAMIDE 10 MG/2 ML VIAL IV PUSH SCH ×3 (11:35→23:45)
[2016-09-03] MEDS ORDERED: MISSING DOSE XX ONE ×2 (12:30→17:20)
[2016-09-03] MEDS: DILAUDID 1 MG/ML AMP IV PRN ×2 (14:43→21:12)
[2016-09-03] MEDS: Meropenem 500 MG in SODIUM CHLORIDE 0.9% 100 ML IV SCH (21:46)
[2016-09-03] MEDS: TEMAZEPAM 15 MG CAP PO SCH (21:46)
[2016-09-03] MEDS: ROPINIROLE 0.25 MG TAB PO SCH (21:47)
[2016-09-03] MEDS: ROSUVASTATIN 5 MG TAB PO SCH (21:47)
[2016-09-04 00:03] VITALS: BP_SYST 101; RESP 16; TEMP 97.5
[2016-09-04] MEDS: DILAUDID 1 MG/ML AMP IV PRN ×4 (03:51→20:35)
[2016-09-04] MEDS: DIPHENHYDRAMINE 25 MG CAP PO PRN (04:03)
[2016-09-04] MEDS: ACETAMINOPHEN 325 MG TAB PO SCH ×4 (04:43→23:37)
[2016-09-04 04:55] VITALS: BP_SYST 114; RESP 18; TEMP 97.4
[2016-09-04] MEDS: SODIUM CHLORIDE 0.9% FLUSH BAG 500 ML IV SCH ×2 (06:00→06:22)
[2016-09-04] MEDS: METOCLOPRAMIDE 10 MG/2 ML VIAL IV PUSH SCH ×4 (06:22→23:36)
[2016-09-04] MEDS: CILOSTAZOL 100 MG TAB PO SCH ×2 (06:22→17:05)
[2016-09-04] MEDS: MIDODRINE 10 MG TAB PO SCH ×3 (06:23→17:05)
[2016-09-04 07:40] VITALS: BP_SYST 99; RESP 18; TEMP 97.5
[2016-09-04] MEDS: ASPIRIN EC 81 MG TAB PO SCH (08:34)
[2016-09-04] MEDS: EZETIMIBE 10 MG TAB PO SCH (08:34)
[2016-09-04] MEDS: SACCHA BOULARDII 250MG CAP PO SCH ×3 (08:34→20:36)
[2016-09-04] MEDS: CALCIUM ACETATE 667MG CAP PO SCH ×3 (08:34→17:05)
[2016-09-04] MEDS: AMIODARONE 200 MG TAB PO SCH ×2 (08:34→20:36)
[2016-09-04] MEDS: POLYETHYLENE GLYCOL 17 GM PACKET PO SCH (08:35)
[2016-09-04] MEDS: TAMSULOSIN 0.4 MG CAP PO SCH (08:35)
[2016-09-04] MEDS: DOCUSATE SOD 100 MG CAP PO SCH ×2 (08:35→20:36)
[2016-09-04] MEDS: SALINE FLUSH 10 ML FLUSH SCH ×2 (08:40→20:41)
[2016-09-04] MEDS: GENTAMICIN TOPICAL SCH ×2 (11:36→23:35)
[2016-09-04 11:47] VITALS: BP_SYST 109; RESP 20; TEMP 97.5
[2016-09-04 15:10] VITALS: BP_SYST 110; RESP 20; TEMP 97.6
[2016-09-04] MEDS: OXYCODONE 5 MG TAB PO PRN (17:05)
[2016-09-04 19:30] VITALS: BP_SYST 98; RESP 18; TEMP 98.3
[2016-09-04] MEDS: Meropenem 500 MG in SODIUM CHLORIDE 0.9% 100 ML IV SCH (20:34)
[2016-09-04] MEDS: ROPINIROLE 0.25 MG TAB PO SCH (20:36)
[2016-09-04] MEDS: TEMAZEPAM 15 MG CAP PO SCH (20:36)
[2016-09-04] MEDS: ROSUVASTATIN 5 MG TAB PO SCH (20:36)
[2016-09-05] VITALS (7 sets, daily range): BP systolic 89–113; RESP 16–18; TEMP 97.3–98.4
[2016-09-05] MEDS: DILAUDID 1 MG/ML AMP IV PRN (03:40)
[2016-09-05] MEDS: ACETAMINOPHEN 325 MG TAB PO SCH ×4 (04:20→22:20)
[2016-09-05] MEDS: SODIUM CHLORIDE 0.9% FLUSH BAG 500 ML IV SCH ×2 (06:00→06:11)
[2016-09-05] MEDS: CILOSTAZOL 100 MG TAB PO SCH ×2 (06:11→17:36)
[2016-09-05] MEDS: MIDODRINE 10 MG TAB PO SCH ×3 (06:11→17:36)
[2016-09-05] MEDS: METOCLOPRAMIDE 10 MG/2 ML VIAL IV PUSH SCH ×4 (06:11→23:29)
[2016-09-05] MEDS: AMIODARONE 200 MG TAB PO SCH ×2 (08:06→20:52)
[2016-09-05] MEDS: EZETIMIBE 10 MG TAB PO SCH (08:06)
[2016-09-05] MEDS: DOCUSATE SOD 100 MG CAP PO SCH ×2 (08:06→20:52)
[2016-09-05] MEDS: TAMSULOSIN 0.4 MG CAP PO SCH (08:06)
[2016-09-05] MEDS: SACCHA BOULARDII 250MG CAP PO SCH ×3 (08:06→20:52)
[2016-09-05] MEDS: CALCIUM ACETATE 667MG CAP PO SCH ×3 (08:06→17:36)
[2016-09-05] MEDS: ASPIRIN EC 81 MG TAB PO SCH (08:06)
[2016-09-05] MEDS: GENTAMICIN TOPICAL SCH ×2 (08:07→20:52)
[2016-09-05] MEDS: POLYETHYLENE GLYCOL 17 GM PACKET PO SCH (08:07)
[2016-09-05] MEDS: SALINE FLUSH 10 ML FLUSH SCH ×2 (08:12→20:52)
[2016-09-05] MEDS ORDERED: MISSING DOSE XX ONE (13:20)
[2016-09-05] MEDS: Meropenem 500 MG in SODIUM CHLORIDE 0.9% 100 ML IV SCH (20:51)
[2016-09-05] MEDS: ROSUVASTATIN 5 MG TAB PO SCH (20:52)
[2016-09-05] MEDS: ROPINIROLE 0.25 MG TAB PO SCH (20:52)
[2016-09-05] MEDS: OXYCODONE 5 MG TAB PO PRN (22:10)
[2016-09-05] MEDS: TEMAZEPAM 15 MG CAP PO SCH (22:10)
[2016-09-06] VITALS (7 sets, daily range): BP systolic 88–114; RESP 18; TEMP 97.3–98.3
[2016-09-06] MEDS: ACETAMINOPHEN 325 MG TAB PO SCH ×4 (02:45→22:20)
[2016-09-06] MEDS: SODIUM CHLORIDE 0.9% FLUSH BAG 500 ML IV SCH ×5 (02:46→21:54)
[2016-09-06] MEDS: OXYCODONE 5 MG TAB PO PRN ×3 (04:37→22:24)
[2016-09-06] MEDS: MIDODRINE 10 MG TAB PO SCH ×3 (06:17→16:00)
[2016-09-06] MEDS: CILOSTAZOL 100 MG TAB PO SCH ×2 (06:17→16:00)
[2016-09-06] MEDS: METOCLOPRAMIDE 10 MG/2 ML VIAL IV PUSH SCH ×4 (06:17→23:13)
[2016-09-06] MEDS: SALINE FLUSH 10 ML FLUSH SCH ×2 (08:00→20:57)
[2016-09-06] MEDS: CALCIUM ACETATE 667MG CAP PO SCH ×3 (08:00→16:00)
[2016-09-06] MEDS: DOCUSATE SOD 100 MG CAP PO SCH ×2 (08:59→20:58)
[2016-09-06] MEDS: ASPIRIN EC 81 MG TAB PO SCH (08:59)
[2016-09-06] MEDS: POLYETHYLENE GLYCOL 17 GM PACKET PO SCH (09:00)
[2016-09-06] MEDS: AMIODARONE 200 MG TAB PO SCH ×2 (09:00→20:58)
[2016-09-06] MEDS: TAMSULOSIN 0.4 MG CAP PO SCH (09:00)
[2016-09-06] MEDS: EZETIMIBE 10 MG TAB PO SCH (09:00)
[2016-09-06] MEDS: SACCHA BOULARDII 250MG CAP PO SCH ×3 (09:00→20:58)
[2016-09-06] MEDS: GENTAMICIN TOPICAL SCH ×2 (12:37→20:57)
[2016-09-06] MEDS: Meropenem 500 MG in SODIUM CHLORIDE 0.9% 100 ML IV SCH (20:57)
[2016-09-06] MEDS: ROSUVASTATIN 5 MG TAB PO SCH (20:58)
[2016-09-06] MEDS: ROPINIROLE 0.25 MG TAB PO SCH (20:58)
[2016-09-06] MEDS: TEMAZEPAM 15 MG CAP PO SCH (22:24)
[2016-09-07] VITALS (7 sets, daily range): BP systolic 83–117; RESP 18–22; TEMP 97.3–97.7
[2016-09-07] MEDS: ACETAMINOPHEN 325 MG TAB PO SCH ×4 (03:43→21:29)
[2016-09-07] MEDS: SODIUM CHLORIDE 0.9% FLUSH BAG 500 ML IV SCH (05:45)
[2016-09-07] MEDS: OXYCODONE 5 MG TAB PO PRN (05:46)
[2016-09-07] MEDS: MIDODRINE 10 MG TAB PO SCH ×3 (05:46→15:25)
[2016-09-07] MEDS: METOCLOPRAMIDE 10 MG/2 ML VIAL IV PUSH SCH ×2 (05:46→12:42)
[2016-09-07] MEDS: CILOSTAZOL 100 MG TAB PO SCH ×2 (05:46→15:25)
[2016-09-07] MEDS: ASPIRIN EC 81 MG TAB PO SCH (09:40)
[2016-09-07] MEDS: SACCHA BOULARDII 250MG CAP PO SCH ×3 (09:40→20:07)
[2016-09-07] MEDS: POLYETHYLENE GLYCOL 17 GM PACKET PO SCH (09:40)
[2016-09-07] MEDS: EZETIMIBE 10 MG TAB PO SCH (09:40)
[2016-09-07] MEDS: AMIODARONE 200 MG TAB PO SCH (09:40)
[2016-09-07] MEDS: DOCUSATE SOD 100 MG CAP PO SCH ×2 (09:40→20:08)
[2016-09-07] MEDS: TAMSULOSIN 0.4 MG CAP PO SCH (09:40)
[2016-09-07] MEDS: CALCIUM ACETATE 667MG CAP PO SCH ×3 (09:40→17:06)
[2016-09-07] MEDS: DIPHENHYDR TOPICAL PRN (09:41)
[2016-09-07] MEDS: ZINC TOPICAL PRN (09:41)
[2016-09-07] MEDS: GENTAMICIN TOPICAL SCH ×2 (09:41→20:09)
[2016-09-07] MEDS: SALINE FLUSH 10 ML FLUSH SCH (09:42)
[2016-09-07] MEDS: DIPHENHYDRAMINE 25 MG CAP PO PRN (10:42)
[2016-09-07] MEDS: METOCLOPRAMIDE 5 MG TAB PO SCH (17:07)
[2016-09-07] MEDS: Meropenem 500 MG in SODIUM CHLORIDE 0.9% 100 ML IV SCH (20:06)
[2016-09-07] MEDS: ROSUVASTATIN 5 MG TAB PO SCH (20:07)
[2016-09-07] MEDS: ROPINIROLE 0.25 MG TAB PO SCH (20:08)
[2016-09-07] MEDS: TEMAZEPAM 15 MG CAP PO SCH (20:10)
[2016-09-07] MEDS ORDERED: CALC CARB 500 MG CHEWTAB PO PRN (21:35)
[2016-09-07] MEDS: FAMOTIDINE 20 MG TAB PO SCH (21:49)
[2016-09-08 03:59] VITALS: BP_SYST 96; RESP 20; TEMP 97.4
[2016-09-08] MEDS: ACETAMINOPHEN 325 MG TAB PO SCH ×4 (04:07→22:20)
[2016-09-08] MEDS: SODIUM CHLORIDE 0.9% FLUSH BAG 500 ML IV SCH ×2 (04:11→06:17)
[2016-09-08] MEDS: METOCLOPRAMIDE 5 MG TAB PO SCH ×3 (06:16→15:08)
[2016-09-08] MEDS: MIDODRINE 10 MG TAB PO SCH ×3 (06:16→15:08)
[2016-09-08] MEDS: CILOSTAZOL 100 MG TAB PO SCH ×2 (06:16→15:08)
[2016-09-08 07:21] VITALS: BP_SYST 82; RESP 18; TEMP 97.7
[2016-09-08] MEDS: POLYETHYLENE GLYCOL 17 GM PACKET PO SCH (09:05)
[2016-09-08] MEDS: ASPIRIN EC 81 MG TAB PO SCH (09:06)
[2016-09-08] MEDS: SACCHA BOULARDII 250MG CAP PO SCH ×3 (09:06→20:26)
[2016-09-08] MEDS: CALCIUM ACETATE 667MG CAP PO SCH ×3 (09:06→17:23)
[2016-09-08] MEDS: FAMOTIDINE 20 MG TAB PO SCH ×2 (09:06→20:26)
[2016-09-08] MEDS: DOCUSATE SOD 100 MG CAP PO SCH ×2 (09:06→20:26)
[2016-09-08] MEDS: TAMSULOSIN 0.4 MG CAP PO SCH (09:06)
[2016-09-08] MEDS: GENTAMICIN TOPICAL SCH ×2 (09:07→21:00)
[2016-09-08] MEDS: EZETIMIBE 10 MG TAB PO SCH (09:07)
[2016-09-08] MEDS: AMIODARONE 200 MG TAB PO SCH (09:07)
[2016-09-08 15:37] VITALS: BP_SYST 100; RESP 18; TEMP 97.6
[2016-09-08] MEDS: TEMAZEPAM 15 MG CAP PO SCH (20:25)
[2016-09-08] MEDS: Meropenem 500 MG in SODIUM CHLORIDE 0.9% 100 ML IV SCH (20:25)
[2016-09-08] MEDS: ROSUVASTATIN 5 MG TAB PO SCH (20:26)
[2016-09-08] MEDS: ROPINIROLE 0.25 MG TAB PO SCH (20:26)
[2016-09-08 21:03] VITALS: BP_SYST 78; RESP 16; TEMP 97.3
[2016-09-08 22:01] VITALS: BP_SYST 110
[2016-09-08 23:12] VITALS: BP_SYST 88; RESP 16; TEMP 98.1
[2016-09-09] VITALS (9 sets, daily range): BP systolic 81–116; RESP 16–20; TEMP 97.4–98.4
[2016-09-09] MEDS: ACETAMINOPHEN 325 MG TAB PO SCH ×3 (04:20→16:16)
[2016-09-09] MEDS: SODIUM CHLORIDE 0.9% FLUSH BAG 500 ML IV SCH ×2 (05:23→06:02)
[2016-09-09] MEDS: MIDODRINE 10 MG TAB PO SCH ×3 (06:00→16:15)
[2016-09-09] MEDS: METOCLOPRAMIDE 5 MG TAB PO SCH ×3 (06:00→16:15)
[2016-09-09] MEDS: CILOSTAZOL 100 MG TAB PO SCH ×2 (06:00→16:15)
[2016-09-09] MEDS: AMIODARONE 200 MG TAB PO SCH (08:07)
[2016-09-09] MEDS: ASPIRIN EC 81 MG TAB PO SCH (08:07)
[2016-09-09] MEDS: CALCIUM ACETATE 667MG CAP PO SCH ×3 (08:07→16:15)
[2016-09-09] MEDS: TAMSULOSIN 0.4 MG CAP PO SCH (08:07)
[2016-09-09] MEDS: DOCUSATE SOD 100 MG CAP PO SCH (08:07)
[2016-09-09] MEDS: FAMOTIDINE 20 MG TAB PO SCH (08:07)
[2016-09-09] MEDS: EZETIMIBE 10 MG TAB PO SCH (08:07)
[2016-09-09] MEDS: SACCHA BOULARDII 250MG CAP PO SCH ×2 (08:07→16:15)
[2016-09-09] MEDS: POLYETHYLENE GLYCOL 17 GM PACKET PO SCH (08:08)
[2016-09-09] MEDS: GENTAMICIN TOPICAL SCH (08:09)
[2016-09-09] MEDS ORDERED: MISSING DOSE XX ONE ×2 (11:30→12:25)
[2016-09-09] MEDS: OXYCODONE 5 MG TAB PO PRN (13:26)
== END 2016-09-09 17:30 | DRG 463 ==
LOC: ENRESERVTM → ENRESERVDT → ER 12:55 → EMR 19:52 → ENPENDDIS 19:52 → 4THW 21:44 → CCU 08-31 01:47 → 4THE 09-02 15:49
PROVIDERS: ADMIT Hospitalist; ATTEND Hospitalist
PROC: 5A1D60Z (ICD-10-PCS; 2016-08-18)
PROC: 0JBN0ZZ Excision of Right Lower Leg Subcutaneous Tissue and Fascia, Open Approach (ICD-10-PCS; 2016-08-25)
PROC: 02HV33Z Insertion of Infusion Device into Superior Vena Cava, Percutaneous Approach (ICD-10-PCS; principal; 2016-09-01)
PROC: B548ZZA Ultrasonography of Superior Vena Cava, Guidance (ICD-10-PCS; 2016-09-01)
DX: T87.43 Infection of amputation stump, right lower extremity (principal); N18.6 End stage renal disease; I47.2 Ventricular tachycardia; I12.0 Hypertensive chronic kidney disease with stage 5 chronic kidney disease or end stage renal disease; N25.81 Secondary hyperparathyroidism of renal origin; E11.22 Type 2 diabetes mellitus with diabetic chronic kidney disease; L03.115 Cellulitis of right lower limb; G45.9 Transient cerebral ischemic attack, unspecified; E87.1 Hypo-osmolality and hyponatremia; B95.2 Enterococcus as the cause of diseases classified elsewhere; B96.89 Other specified bacterial agents as the cause of diseases classified elsewhere; Y83.5 Amputation of limb(s) as the cause of abnormal reaction of the patient, or of later complication, without mention of misadventure at the time of the procedure; E11.51 Type 2 diabetes mellitus with diabetic peripheral angiopathy without gangrene; Z99.2 Dependence on renal dialysis; I25.10 Atherosclerotic heart disease of native coronary artery without angina pectoris; G89.29 Other chronic pain; M54.5 Low back pain; K59.03 Drug induced constipation; T40.2X5A Adverse effect of other opioids, initial encounter; Y92.239 Unspecified place in hospital as the place of occurrence of the external cause; E87.5 Hyperkalemia; R11.0 Nausea; M79.89 Other specified soft tissue disorders; T80.89XA Other complications following infusion, transfusion and therapeutic injection, initial encounter; D63.1 Anemia in chronic kidney disease; Z79.82 Long term (current) use of aspirin; Z79.02 Long term (current) use of antithrombotics/antiplatelets; Z79.4 Long term (current) use of insulin; Z87.891 Personal history of nicotine dependence; E88.09 Other disorders of plasma-protein metabolism, not elsewhere classified; R13.10 Dysphagia, unspecified
CPT/HCPCS: 36415; 36569; 70450; 70498; 71010; 73701; 76937; 80048; 80053; 80069; 80202; 82533; 82553; 82947; 83605; 83735; 84100; 84484; 85025; 85652; 87040; 87071; 87075; 87077; 87186; 93005; 93880; 93971; 94799; 96365; 96375; 99223; 99232; 99233; 99239